=== PATIENT | female | born 1990 | race African-American/Black ===

== ENCOUNTER 2017-04-24 19:13 | Emergency (ER) | payer MEDICAID ==
[~2017-04-24] VITALS: Ht 160 cm; Wt 50.0 kg
[2017-04-24 20:07] VITALS: BP 116/74
== END 2017-04-25 | disposition left against medical advice (07) ==
LOC: ER 19:13
DX: N89.8 Other specified noninflammatory disorders of vagina (principal); Z53.21 Procedure and treatment not carried out due to patient leaving prior to being seen by health care provider

== ENCOUNTER 2021-11-27 10:32 | Emergency (ER) | payer MEDICAID ==
[~2021-11-27] VITALS: Ht 160 cm; Wt 59.0 kg
[2021-11-27 11:45] LABS: BASOPHILS % 0.1 % (0.0-2.0); HEMATOCRIT. 36.2 % (36.0-48.0); HEMOGLOBIN. 12.6 g/dL (12.0-16.0); MEAN PLATELET VOLUME 8.6 fl (7.4-10.4); MONOCYTES % 5.2 % (2.0-8.0); NEUTROPHILS % 86.7 % (40.0-76.0); PLATELET 264 x1000/uL (130-400); RED BLOOD CELL COUNT 3.93 mill/uL (4.2-5.4); RED CELL DISTRIBUTION WIDTH 12.3 % (11.6-14.6)
[2021-11-27 11:51] LABS: CHLORIDE 103 mEq/L (98-107)
[2021-11-27 13:15] VITALS: BP 98/61
[2021-11-27 13:25] LABS: *COCAINE SCREEN URINE NEGATIVE (NEGATIVE); METHADONE URINE SCREEN NEGATIVE (NEGATIVE); OPIATES URINE SCREEN NEGATIVE (NEGATIVE); PHENCYCLIDINE URINE SCREEN NEGATIVE (NEGATIVE)
[2021-11-27 13:26] LABS: *AMPHETAMINES SCREEN URINE NEGATIVE (NEGATIVE); *BARBITURATES SCREEN URINE NEGATIVE (NEGATIVE); *BENZODIAZEPINES SCREEN URINE NEGATIVE (NEGATIVE)
[2021-11-27 13:27] LABS: CANNABINOID URINE SCREEN PRESUMTIVE POSITIVE (NEGATIVE)
== END 2021-11-27 13:52 | disposition left against medical advice (07) ==
LOC: ER 10:32
DX: R07.89 Other chest pain (principal); R06.02 Shortness of breath
CPT/HCPCS: 36415; 71045; 80053; 80305; 83880; 84484; 85025; 93005; 99285